=== PATIENT | male | born 1975 | race African-American/Black ===

== ENCOUNTER 2020-10-26 04:47 | Observation (INO) ==
[2020-10-26 06:00] LABS: Basophils # 0.1 10*3/uL (0.0-0.2); Basophils % 0.9 % (0.0-0.8); Eosinophils # 0.1 10*3/uL (0.0-0.87); Eosinophils % 1.5 % (0.00-10.9); Hematocrit 38.9 VOL% (42.0-52.0); Hemoglobin 12.7 GM/DL (14.0-18.0); Immature Granulocytes % 0.2 %; Immature Granulocytes Absolute 0.02 #; Lymphocytes # 1.7 10*3/uL (1.4-4.0); Lymphocytes % 18.1 % (21.2-54.2); Mean Corpuscular HGB Conc 32.6 GM/DL (32-36); Mean Corpuscular Volume 93.5 FL (87-102); Mean Platelet Volume 10.1 FL (9.6-12.0); Monocytes % 4.9 % (1.7-12.7); Neutrophils % 74.4 % (38.7-73.9); Platelet Count 300 T/CUMM (130-400); Red Blood Count 4.16 MC/CUMM (3.8-5.5); Red Cell Distribution Width 12.9 % (9.3-17.3); White Blood Count 9.1 T/CUMM (4-12)
[2020-10-26 06:05] LABS: Bilirubin,Urine Negative (Negative); Blood, Urine Negative (Negative); Glucose,Urine (UA) >=500 mg/dL (Negative); Ketones,Urine Negative (Negative); Mucus,Urine Occasional /LPF (Occasional); Nitrite,Urine Negative (Negative); Protein,Urine Negative; RBC,Urine 3 /HPF (0-4); Urine Appearance CLEAR (Clear); Urine Color Yellow (Yellow); Urine Specific Gravity 1.015 (1.001-1.035); Urine Urobilinogen < 2.0 EU/DL (0.2-1.0)
[2020-10-26] MEDS ORDERED: hydrALAZINE 20 MG/1 ML VIAL ONE (06:05)
[2020-10-26] MEDS ORDERED: hydrALAZINE 20 MG/1 ML VIAL IV STA (06:08)
[2020-10-26 06:28] LABS: Albumin 4.1 G/DL (3.4-5.0); Bilirubin,Total 0.5 MG/DL (0.20-1.00); Calcium 8.2 MG/DL (8.5-10.1); Osmolality,Calculated 283.7 MOS/KG (273-304); Potassium 3.5 MMOL/L (3.5-5.1); Total Protein 7.6 G/DL (6.4-8.2)
[2020-10-26 06:41] LABS: Barbiturates Screen,Urine Negative (Negative); Benzodiazepines Screen,Urine Negative (Negative); Cannabinoid Screen,Urine Positive (Negative); Opiate Screen,Urine Negative (Negative); Phencyclidine Screen,Urine Negative (Negative)
[2020-10-26] MEDS ORDERED: SODIUM CHLORIDE 0.9% 1,000 ML IV STA (08:24)
[2020-10-26] MEDS ORDERED: cefTRIAXone 1,000 MG in SODIUM CHLORIDE 0.9% 100 ML IV STA (09:43)
[2020-10-26] MEDS ORDERED: ONDANSETRON 4 MG/2 ML VIAL IV PRN (11:44)
[2020-10-26] MEDS ORDERED: GLUCAGON 1 MG VIAL IM PRN ×2 (11:44)
[2020-10-26] MEDS ORDERED: DEXTROSE 50% 25 GM/50 ML VIAL IV PRN ×2 (11:44)
[2020-10-26] MEDS ORDERED: ACETAMINOPHEN 325 MG TABLET PO PRN (11:44)
[2020-10-26] MEDS: SODIUM CHLORIDE 0.9% 1,000 ML IV SCH ×2 (13:39→22:29)
[2020-10-27] MEDS: SODIUM CHLORIDE 0.9% 1,000 ML IV SCH ×2 (04:21→15:08)
[2020-10-27 05:42] LABS: Basophils % 0.9 % (0.0-0.8); Eosinophils # 0.1 10*3/uL (0.0-0.87); Eosinophils % 2.6 % (0.00-10.9); Hematocrit 36.7 VOL% (42.0-52.0); Immature Granulocytes % 0.2 %; Immature Granulocytes Absolute 0.01 #; Lymphocytes # 1.5 10*3/uL (1.4-4.0); Lymphocytes % 34.5 % (21.2-54.2); Mean Corpuscular HGB Conc 32.7 GM/DL (32-36); Mean Corpuscular Volume 94.6 FL (87-102); Mean Platelet Volume 9.9 FL (9.6-12.0); Monocytes % 8.9 % (1.7-12.7); Neutrophils % 52.9 % (38.7-73.9); Platelet Count 228 T/CUMM (130-400); Red Blood Count 3.88 MC/CUMM (3.8-5.5); Red Cell Distribution Width 13.1 % (9.3-17.3); White Blood Count 4.3 T/CUMM (4-12)
[2020-10-27 06:17] LABS: Calcium 8.5 MG/DL (8.5-10.1); Osmolality,Calculated 282.1 MOS/KG (273-304); Potassium 4.7 MMOL/L (3.5-5.1); Risk Ratio 5.83; Thyroid Stimulating Hormone 1.26 uIU/ml (0.358-3.74); VLDL Cholesterol 21.4 MG/DL
[2020-10-27] MEDS ORDERED: lisinopriL 10 MG TABLET PO SCH (09:00)
[2020-10-27] MEDS ORDERED: cefTRIAXone 1,000 MG in SODIUM CHLORIDE 0.9% 100 ML IV SCH (09:00)
[2020-10-27 14:11] VITALS: BP 140/87
== END 2020-10-27 15:00 | disposition home or self-care (01) ==
LOC: N.ED 04:47 → N.EDINP 04:47 → N.5E 12:07
PROVIDERS: ADMIT Internal Medicine; ATTEND Internal Medicine